=== PATIENT | male | born 2000 | race Hispanic/Latino ===

== ENCOUNTER 2019-11-04 20:31 | Emergency (ER) | payer BC ==
[~2019-11-04] VITALS: Ht 188 cm; Wt 131.5 kg
== END 2019-11-04 22:41 | disposition home or self-care (01) ==
LOC: ED 20:31
DX: S46.911A Strain of unspecified muscle, fascia and tendon at shoulder and upper arm level, right arm, initial encounter (principal); W18.30XA Fall on same level, unspecified, initial encounter
CPT/HCPCS: 73030; 99283-25

== ENCOUNTER 2022-01-07 03:21 | Emergency (ER) | payer BC ==
[~2022-01-07] VITALS: Ht 188 cm; Wt 136.1 kg
[2022-01-07] MEDS ORDERED: ANTIBIOTIC28.4 GM TOP (03:51)
--- OUTSIDE RECORDS SUMMARY | 2022-01-07 04:18 | XMS ---
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 E.Shira VISIT COUNT (12 MO.) [address] [facility] [place] TOTAL 1 NOTE: Visits indicate total known visits. ED/UCC VISIT TRACKING (12 MO.) 01/07/2022 03:21 [facility] TYPE: Emergency COMPLAINT: - LACERATION INPATIENT VISIT TRACKING (12 MO.) No inpatient visits to display in this time frame [email or web address]
== END 2022-01-07 04:08 | disposition home or self-care (01) ==
LOC: ED 03:21
DX: S61.012A Laceration without foreign body of left thumb without damage to nail, initial encounter (principal); I10 Essential (primary) hypertension; W26.8XXA Contact with other sharp object(s), not elsewhere classified, initial encounter; Z23 Encounter for immunization
CPT/HCPCS: 12002; 90471; 90714; 99282-25

== ENCOUNTER 2022-01-13 07:32 | Emergency (ER) | payer BC ==
[~2022-01-13] VITALS: Ht 188 cm; Wt 136.1 kg
[~2022-01-13 07:32] MED LIST: ANTIBIOTIC28.4 GM TOP
--- OUTSIDE RECORDS SUMMARY | 2022-01-13 07:40 | XMS ---
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 Vonda VISIT COUNT (12 MO.) 2 [facility] TOTAL 2 NOTE: Visits indicate total known visits. ED/C VISIT TRACKING (12 MO.) 01/13/2022 07:33 [facility] TYPE: Emergency COMPLAINT: - SUTURE REMOVAL 01/07/2022 03:21 [facility] TYPE: Emergency COMPLAINT: - LACERATION DIAGNOSES: - Essential (primary) hypertension - Laceration without foreign body of left thumb without damage to nail, initial encounter - Encounter for immunization - Contact with other sharp object(s), not elsewhere classified, initial encounter INPATIENT VISIT TRACKING (12 MO.) No inpatient visits to display in this time frame [id number]
[2022-01-13] MEDS ORDERED: CEPHALEXIN500 M1 PO (08:31)
== END 2022-01-13 08:58 | disposition home or self-care (01) ==
LOC: ED 07:32
DX: S61.012D Laceration without foreign body of left thumb without damage to nail, subsequent encounter (principal); W26.0XXD Contact with knife, subsequent encounter
CPT/HCPCS: 99282; A9270

== ENCOUNTER 2024-12-08 08:35 | Emergency (ER) | payer BC ==
[~2024-12-08] VITALS: Ht 188 cm; Wt 160.7 kg
[~2024-12-08 08:35] MED LIST changes: +AMOXICILLIN500 MG PO; +CEPHALEXIN500 M1 PO; +HYDROCODON-ACE1 EA10 PO; +TYLOPHEN500 MG PO
[2024-12-08] MEDS ORDERED: CYCLOBENZAPRINE10 MG PO (12:19)
[2024-12-08] MEDS ORDERED: IBU600 MG PO (12:19)
[2024-12-08] MEDS ORDERED: ASPERCREME1 EACH TD (12:19)
[2024-12-08 12:24] VITALS: BP 134/80
== END 2024-12-08 12:27 | disposition home or self-care (01) ==
LOC: ED 08:35
DX: M54.50 Low back pain, unspecified (principal); I10 Essential (primary) hypertension; Z79.899 Other long term (current) drug therapy
CPT/HCPCS: 99283